=== PATIENT | female | born 1990 | race Caucasian/White ===

== ENCOUNTER 2022-05-19 08:35 | Outpatient (CLI) | payer MEDICAID, SELFPAY ==
--- NOTE | 2022-05-19 08:50 | US_ITS ---
WS: [id number] ULTRASOUND LEFT BREAST HISTORY: N64.4 - Mastodynia COMPARISON: None available. TECHNIQUE: 2-D and Doppler. Ultrasound is directed all 4 quadrants and area of pain. There is a vague hypoechoic area in the LEFT breast at 9:00, 2 cm from the nipple measuring 8 x 5 x 10 mm. With history of recent breast-feeding and pain this may be a focal area of mastitis. No shadowing or increased vascularity. This is very lopez perficial. The remaining breast is negative. US/US breast LT complete [id number] IMPRESSION: BI-RADS: 3-Probably Benign FOLLOW-UP: 6 Month Follow-up Subtle area of decreased echogenicity LEFT breast at 2:00, 4 cm from the nipple . May be a focal area of mastitis. There is no increased vascularity. This is v benny likely benign. Recommend 6 month follow-up to ensure resolution.
== END 2022-05-19 08:36 | disposition home or self-care (01) ==
PROVIDERS: PCP Nurse Practitioner Family; Visit Provider Nurse Practitioner Family
DX: N64.4 Mastodynia (principal)
CPT/HCPCS: 76641

== ENCOUNTER 2022-07-30 10:39 | Outpatient (CLI) | payer MEDICAID, SELFPAY ==
--- NOTE | 2022-07-30 10:50 | MM_ITS ---
WS: [id number] DIAGNOSTIC BILATERAL DIGITAL BREAST TOMOSYNTHESIS MAMMOGRAPHY WITH CAD LEFT breast ultrasound, limited HISTORY: LT BREAST LUMP COMPARISON: LEFT breast ultrasound 05/19/2022 TECHNIQUE: Bilateral craniocaudad, mediolateral oblique, and mediolateral views are submitted with to mosynthesis and SM. LEFT CC and MLO spot compression views. Computer aided detection utilized. Breast composition: The breasts are extremely dense, which lowers the sensitivity of mammography. Mary y dense breast tissue. Palpable markers are placed along the superior LEFT breast. No underlying mass or distortion identified. There is no skin thickening or nipple retraction. RIGHT breast is also neg ative. LEFT breast ultrasound, limited. Dense fibroglandular tissue at 2:00, 9:00 and 11:00 as directed by the patient. There are no suspicio us masses or areas of shadowing. The previously described asymmetries at 2:00 and 9:00 are not as pro minent today. No shadowing or skin thickening. MM/[place] [id number] IMPRESSION: BI-RADS: 2-Benign FOLLOW UP: Age 40 No imaging abnormality in the LEFT breast in the area of clinical concern. No a dditional imaging recommended.
== END 2022-07-30 10:40 | disposition home or self-care (01) ==
PROVIDERS: PCP Nurse Practitioner Family; Visit Provider Nurse Practitioner Family
DX: N63.20 Unspecified lump in the left breast, unspecified quadrant (principal)
CPT/HCPCS: 76642; 77062; G0279

== ENCOUNTER → 2022-11-10 10:34 | Outpatient (BNVA) | payer MEDICAID, SELFPAY | PROVIDERS: PCP Nurse Practitioner Family; Visit Provider Nurse Practitioner Family | DX: E03.9 Hypothyroidism, unspecified (principal) | CPT/HCPCS: 84439; 84443; 84481 ==

== ENCOUNTER → 2023-02-01 12:05 | Outpatient (BNVA) | payer MEDICAID, SELFPAY | PROVIDERS: PCP Nurse Practitioner Family; Visit Provider Emergency Medicine | DX: M79.671 Pain in right foot (principal); M79.89 Other specified soft tissue disorders | CPT/HCPCS: 73630 ==

== ENCOUNTER 2024-03-13 10:04 | Oncology outpatient (recurring) (ONCR) | payer MEDICAID, SELFPAY ==
[2024-03-13] MEDS: rho(d) immune globulin 1,500 unit Syringe 1500 UNIT IM (10:13)
== END 2024-03-20 23:59 | disposition home or self-care (01) ==
LOC: ONCMED 10:05
PROVIDERS: PCP Nurse Practitioner Family; Visit Provider Family Medicine
DX: Z79.899 Other long term (current) drug therapy (principal); Z67.41 Type O blood, Rh negative
CPT/HCPCS: 96372; J2790

== ENCOUNTER 2024-04-07 21:55 | Outpatient (CLI) | payer MEDICAID, SELFPAY ==
[2024-04-07 21:55] VITALS: BMI 40.4
[2024-04-07 22:14] VITALS: BP 113/59; PULSE 78
[2024-04-07 22:18] VITALS: BP 114/58; PULSE 83
[2024-04-07 22:34] VITALS: BP 115/60; PULSE 77
[2024-04-07 22:42] LABS: Nitrazine Paper, PH Inconclusive
[2024-04-07 22:48] LABS: Actim Prom Negative
[2024-04-07 23:08] VITALS: BP 115/60; PULSE 77
== END 2024-04-07 23:08 | disposition home or self-care (01) ==
LOC: OPOB 21:56 → OBGYN 21:59
PROVIDERS: PCP Nurse Practitioner Family; Visit Provider Family Medicine
DX: O26.899 Other specified pregnancy related conditions, unspecified trimester (principal); Z3A.00 Weeks of gestation of pregnancy not specified; R10.9 Unspecified abdominal pain; N89.8 Other specified noninflammatory disorders of vagina
CPT/HCPCS: 59025; 83986; 84112; 99211

== ENCOUNTER 2024-04-27 05:06 | Inpatient (IN) | payer MEDICAID, SELFPAY ==
--- NOTE | 2024-04-20 08:13 | P.ANESASSM_ITS ---
Pre-Anesthetic Assessment Height/Weight: Height 5 ft 3 in Preop Diagnosis: planned C section Operation Date: 04/27/24 07:20 Proposed Procedures p Section 49663, Z34.83, 69051,(Not Applicable) - Blaire Allan MD Was Beta Matilde taken within 24 hours: N/A Was Clonidine taken within 24 hours: N/A Social No alcohol and No tobacco Exam alert, oriented x 3, clear to auscultation bilaterally and regular rate & rhythm Airway Submandibular: within normal limits Cervical ROM: within normal limits Mallampati: Class II Dentition: full Anesthetic Plan ASA status: 2 Anesthesia: Regional (specify below) Other: G4, P3 here for consult for planned next No issues during or with prior anesthetic. Patient only takes vitamin Denies any pulmonary cardiac issues METs greater than 4 Will obtain labs day of prior to spinal anesthetic Medications/Allergies Home Medications Medication Instructions Recorded Confirmed Last Taken Type 1 tab PO DAILY 04/07/24 04/07/24 04/07/24 History Allergies Allergy/AdvReac Type Severity Reaction Status Date / Time No Known Allergies Allergy Verified 04/07/24 22:21 [facility], [facility] Anesthesia Surgical History Hx of section Family History Father Diabetes Family/Other Cancer Dementia Diabetes Grandfather Cancer Diabetes Mother Diabetes Grandmother Diabetes Sister Diabetes Denies family history of Colon cancer Ovarian cancer Heart disease Breast cancer Hypertension Uterine cancer Thyroid disease Stroke Data Anesthesia Cardiac Studies: No Data to Display
[2024-04-27] VITALS (31 sets, daily range): BP systolic 89–114; BP diastolic 41–64; PULSE 56–96; RESP 15–16; TEMP 36.4–36.7; O2SAT 95–97; BMI 40.1
[2024-04-27 05:30] LABS: Basophils % 0.4 %; Eosinophils # 0.1 10^3/uL (0.0-0.8); Hematocrit 35.1 % (36-47); Lymphocytes # 2.4 10^3/uL (0.8-4.8); Lymphocytes % 24.4 %; Mean Corpuscular HGB Conc 33.3 g/dL (30-55); Mean Corpuscular Hemoglobin 28.3 pg (27-33); Mean Corpuscular Volume 84.8 fl (85-98); Mean Platelet Volume 11.7 fL (7.4-10.4); Monocytes # 0.7 10^3/uL (0.2-0.9); Monocytes % 7.2 %; Neutrophils # 6.58 10^3/uL (1.8-7.7); Neutrophils % 66.3 %; Nucleated Red Blood Cells % 0 %; Platelet Count 148 10^3/cmm (157-399); Red Blood Count 4.14 10^6/uL (3.85-5.65); Red Cell Distribution Width 12.8 % (12.1-15.1); White Blood Count 9.92 10^3/uL (3.29-11.43)
[2024-04-27] MEDS: lactated ringers 1,000 ML 999 ML IV (06:00)
[2024-04-27 06:35] LABS: Slide Review Slide Review Perform
[2024-04-27] MEDS: famotidine 20 mg/2 mL INJ IVP (06:54)
[2024-04-27] MEDS: metoclopramide 5 mg/mL SDV 2 mL 10 MG IVP (06:55)
[2024-04-27] MEDS: citric acid-sodium citrate 30 mL UDC PO (06:55)
--- NOTE | 2024-04-27 06:55 | P.ANESUD_ITS ---
Pre-Anesthetic Update Pre-Anesthetic Assessment: Date of Surgery/Procedure: 04/27/24 Preop Kaitlin gnosis: planned C section Proposed Procedure: Operation Date: 04/27/24 07:20 Proposed Procedures p Section 57895, Z34.83, 30605,(Not Applicable) - Blaire Allan MD Any changes to Pre-Anesthetic Assessment?: No Last Intake: Intake Last Liquid Date 04/26/24 Last Liquid Time 22:00 Last Solid Date 04/26/24 Last Solid Time 19:00 Labs Last 48hrs: Short CBC 04/27/24 Range/Units 05:15 WBC 9.92 (3.29-11.43) 10^ 3/uL Hgb 11.70 (11.27-16.99) g/ dL Hct 35.1 L (36-47) % MCV 84.8 L (85-98) fl Plt Count 148 L (157-399) 10^3/c mm Neut % (Auto) 66.3 % Neut # (Auto) 6.58 (1.8-7.7) 10^3/u L Blood Bank 04/27/24 05:15 Blood Type O Negative Rho(D) Type Rh negative Antibody Screen Positive Vitals: Temperature 98.0 F 04/27/24 06:00 Temperature Source Oral 04/27/24 06:00 Pulse Rate 88 04/27/24 05:51 Respiratory Rate 16 04/27/24 06:00 Respiratory Effort Spontaneous, Non- Labored 04/27/24 05:08 Respiratory Depth Normal 04/27/24 05:08 Respiratory Patter n Normal 04/27/24 05:08 Blood Pressure 110/63 04/27/24 05:51 Oxygen Delivery Me thod Room Air 04/27/24 06:00 Exam: Pre-Anes Outpt Exam: alert, oriented x 3, clear to auscultation bilaterally and regular rate & rhythm Cardiac Studies: No Data to Display
--- NOTE | 2024-04-27 06:58 | P.HP_ITS ---
Providers/Chief Complaint 2 Admitting Physician: Blaire Allan MD Primary Care Provider: RADHA Preciado History of Present Illness Richar Mckenna is a 33 year old female G4, P3 at 39 weeks gestation who is here for a repeat section with bilateral tubal ligation. Review of Systems 2 Narrative: She is feeling well this morning, she denies any fever or chills, abdominal pain, contractions, bleeding or loss of fluid. Medications/Allergies Home Medications Medication Instructions Recorded Confirmed Last Taken Type 1 tab PO DAILY 04/07/24 04/07/24 04/07/24 History Allergies Allergy/AdvReac Type Severity Reaction Status Date / Time No Known Allergies Allergy Verified 04/07/24 22:21 PFSH Acute 2 PFSH: Surgical History (Updated 04/27/24 @ 07:01 by Blaire Allan MD) History of appendectomy Hx of section Family History Father Diabetes Family/Other Cancer Dementia Diabetes Grandfather Cancer Diabetes Mother Diabetes Grandmother Diabetes Sister Diabetes Denies family history of Colon cancer Ovarian cancer Heart disease Breast cancer Hypertension Uterine cancer Thyroid disease Stroke Female Reproductive History: Date of last menstrual period: 06/27/23 G ravida: 4 Para: 3 Other female reproductive history: section x 3 Vitals/I&O/Wt Last Vital Signs Temp 98.0 F 04/27/24 06:00 Pulse 88 04/27/24 05:51 Resp 16 04/27/24 06:00 BP 110/63 04/27/24 05:51 O2 Del Method Room Air 04/27/24 06:00 Weight last 48 hrs Weight 102.965 kg Physical Exam 2 Narrative: Alert and oriented, sitting up in bed, heart regular rate and rhythm, lungs clear to auscultation bilaterally, abdomen is gravid and nontender, extremities have no calf tenderness Data 04/27/24 05:15 A&P Assessment and plan (1) with 39 completed weeks gestation: Repeat section with bilateral tubal ligation Attestations 2 Medical Necessity Statement*: surgery and postoperative care Coding Level of Care Code Acute Code for Chg Fwd Diagnoses with 39 completed weeks gestation Z3A.39
--- NOTE | 2024-04-27 08:31 | PM.OP ---
Operative Report Date of procedure: April 27, 2024 Pre-op diagnosis: IUP at 39 weeks gestation Repeat section Desired permanent surgical sterilization Post-op diagnosis: Same Procedure done: Repeat low-transverse section Via Pfannenstiel skin incision Bilateral tubal ligation Specimens removed/disposition: Vertex female weight 3480 g, Apgars 9 and 10 Surgeon: Blaire Allan MD Estimated blood loss (mL): 350 IV fluids (mL): 900 Urine output (mL): 75 Complications: None Procedure: After informed consent the patient was taken to the OR where spinal anesthesia was administered. She was prepped and draped in normal sterile fashion in dorsal supine position with a left lateral tilt. A Pfannenstiel skin incision was made and her previous scar was removed. The incision was then extended down to the fascia sharply. The fascial incision was extended laterally using the Mayos. There was a significant amount of fascial scarring and a paucity of rectus muscles. The fascia was then grasped with Sony clamps and the underlying rectus muscles were dissected off taking care to avoid injury to the underlying tissue. The midline was heavily scarred and was entered sharply using the scalpel. The incision was then extended by manual stretching. The bladder blade was inserted. The vesicouterine peritoneum was scarred but was entered sharply using the Metzenbaums. The bladder flap was created digitally and the bladder blade was reinserted. Uterine incision was made in a transverse fashion in the lower uterine segment. Amniotic rupture membranes was performed using an Allis clamp and there was clear fluid. The infant was delivered atraumatically with bulb suction of the mouth and naris at delivery. The cord was clamped and cut. The was handed to the waiting pediatric nurse. Cord blood was obtained. The placenta was delivered using fundal pressure. The uterus was then exteriorized from the abdomen and a dry sponge was used to clear the uterus of clots and debris. The uterine incision was then repaired using 0 chromic in a running locked fashion. A second layer of the same suture was used in an imbricating manner. Hemostasis was obtained. The left fallopian tube was then grasped with a Cesilia and a distal portion of the tube was ligated and excised. Tubal ostia were visualized. Segment of the tube was sent to pathology. Cut portions of the tube were coagulated using the Bovie. The right fallopian tube was then grasped with a Cesilia and a midportion of the tube was ligated and excised. Tubal ostia were visualized. Segment of the tube was sent to pathology. The cut portions of the tube were coagulated using the Bovie. The uterus was then gently returned to the abdomen. Irrigation was used to clear the gutters of clots and debris and the uterine incision was reinspected for hemostasis. The fascia was then reapproximated using 0 Vicryl in a running fashion. The subcutaneous tissue was then irrigated and any small bleeders were coagulated using the Bovie. The subcutaneous tissue was then reapproximated using 4-0 Vicryl in a running fashion. The skin was then reapproximated using 4-0 Vicryl in a running fashion on a Corby needle. Steri-Strips and a pressure bandage were applied and patient went to recovery in good condition. Sponge instrument and needle counts were correct.
[2024-04-27] MEDS: ePHEDrine 50 mg/mL Inj 10 MG IVP (08:58)
[2024-04-27] MEDS: dextrose 5%-lactated ringers 1,000 ML 125 ML IV (09:15)
--- NOTE | 2024-04-27 09:15 | ANE.PACU2 ---
Inpatient post-anesthesia follow up: Airway intact: Yes Vital signs: Temperature 97.6 F Pulse Rate 65 Respiratory Rate 16 Blood Pressure 97/56 Pulse Oximetry 97 Oxygen Delivery Me thod Room Air Oxygen Flow Rate Fraction of Inspir ed Oxygen Hydration adequate: Yes Nausea and vomiting: No Pain level: 1 Mental status: Baseline
[2024-04-27] MEDS: ondansetron 2 mg/ML SDV 2 mL 4 MG IVP ×2 (11:35→16:39)
[2024-04-27] MEDS: sodium chloride 0.9% 500 ML 999 ML IV (14:03)
[2024-04-27] MEDS: ketorolac 30 mg/mL INJ IVP ×2 (14:04→20:41)
[2024-04-27 20:34] LABS: Hematocrit 31.6 % (36-47); Mean Corpuscular HGB Conc 32.6 g/dL (30-55); Mean Corpuscular Hemoglobin 28.5 pg (27-33); Mean Corpuscular Volume 87.3 fl (85-98); Mean Platelet Volume 10.7 fL (7.4-10.4); Platelet Count 145 10^3/cmm (157-399); Red Blood Count 3.62 10^6/uL (3.85-5.65); Red Cell Distribution Width 12.8 % (12.1-15.1); White Blood Count 13.38 10^3/uL (3.29-11.43)
[2024-04-27] MEDS: docusate sodium 100 mg Capsule PO (20:41)
[2024-04-28] VITALS (7 sets, daily range): BP systolic 96–123; BP diastolic 53–71; PULSE 72–88; RESP 16; TEMP 36.7–36.9
[2024-04-28] MEDS: ketorolac 30 mg/mL INJ IVP (04:20)
[2024-04-28] MEDS: PRENATAL VIT NO.130/IRON/FOLIC 1 EACH TABLET PO (09:17)
[2024-04-28] MEDS: ferrous sulfate EC 325 mg Tablet PO (09:17)
[2024-04-28] MEDS: docusate sodium 100 mg Capsule PO (09:17)
[2024-04-28] MEDS: ibuprofen 800 mg tablet PO ×3 (09:50→20:26)
--- NOTE | 2024-04-28 11:22 | P.PN_ITS ---
Subjective 2 Subjective: Postop day #1 repeat section with bilateral tubal ligation. The patient is doing well. She says her pain is not too bad. She is ambulating and tolerating a regular diet, she has light vaginal bleeding. Vitals/I&O/Wt Last Vital Signs Temp 98.0 F 04/28/24 10:35 Pulse 76 04/28/24 10:28 Resp 16 04/28/24 10:35 BP 110/60 04/28/24 10:28 Pulse Ox 97 04/27/24 09:10 O2 Del Method Room Air 04/27/24 09:10 04/27/24 04/28/24 04/28/24 22:59 06:59 14:59 Intake Total Output Total 1300 / 2195 Balance -1300 / -1295 1 / 1294 Weight last 48 hrs Weight 102.965 kg Physical Exam 2 Narrative: Alert and oriented sitting up in bed holding the infant, heart regular rate and rhythm, lungs clear to auscultation bilaterally, abdomen is soft with appropriate postoperative tenderness, incision is clean dry and intact with Steri-Strips in place. Extremities have 1+ edema but no calf tenderness Urinary Catheter Management: Ag: Cath Placed During This Visit: yes, but has since been removed by the nurse Reason for Continuing Indwelling Catheter: Decision to DC Catheter Urinary Catheter Date of Insertion: 04/27/24 Urinary Catheter Time of Insertion: 07:20 Date Urinary Catheter Removed: 04/27/24 Time Urinary Catheter Discontinued: 20:40 Data 04/27/24 20:30 A&P Assessment and plan (1) Status post repeat low transverse section: Postop day 1 repeat section with bilateral tubal ligation. Doing well. Continue routine postoperative and care. Attestations 2 Medical Necessity Statement*: Routine postoperative and care Coding Level of Care Code Acute Code for Chg Fwd Diagnoses Status post repeat low transverse section Z98.891
[2024-04-28] MEDS: acetaminophen 325 mg Tablet 650 MG PO (12:48)
[2024-04-28] MEDS: HYDROcodone-acetaminophen 5-325 mg Tablet PO ×2 (16:43→22:29)
[2024-04-29] MEDS: HYDROcodone-acetaminophen 5-325 mg Tablet PO ×3 (03:09→12:04)
[2024-04-29 05:30] VITALS: BP 107/56; PULSE 73
[2024-04-29] MEDS: docusate sodium 100 mg Capsule PO (07:35)
[2024-04-29] MEDS: ibuprofen 800 mg tablet PO (07:35)
[2024-04-29] MEDS: PRENATAL VIT NO.130/IRON/FOLIC 1 EACH TABLET PO (07:35)
--- NOTE | 2024-04-29 08:10 | P.DS_ITS ---
Discharge Providers Date of Admission: 04/27/24 05:06 Date of Discharge: April 29, 2024 Attending Provider at Admission: Blaire Allan MD Attending Provider at Discharge: Blaire Allan MD Primary Care Provider: RADHA Preciado Diagnoses at Discharge Discharge Diagnosis (1) Status post repeat low transverse section: Status: Acute Reason for Visit Reason for Visit: UTD 04/27 Hospital Course Hospital Course This is a 33-year-old G4 now P4 who had a repeat section with bilateral tubal ligation. She has done well postoperatively. She is ambulating, tolerating a regular diet, has pain control with oral medications and is comfortable with discharge home. Physical Exam Narrative: Alert and oriented, resting in bed, heart regular rate and rhythm, lungs clear to auscultation bilaterally, abdomen is soft with appropriate postoperative tenderness, incision is clean dry and intact with Steri-Strips in place, extr emities have 1+ edema but no calf tenderness. Urinary Catheter Management: Ag: Cath Placed During This Visit: yes, but has since been removed by the nurse Reason for Continuing Indwelling Catheter: Decision to DC Catheter Urinary Catheter Date of Insertion: 04/27/24 Urinary Catheter Time of Insertion: 07:20 Date Urinary Catheter Removed: 04/27/24 Time Urinary Catheter Discontinued: 20:40 Discharge Data Studies Completed and Pending Pending at discharge Category Date Time Status Pathology: Surgical [PTH] Routine Pth 04/27/24 10:37 Received Laboratory Results WBC 13.38 10^3/uL (3.29-11.43) H 04/27/24 20:30 RBC 3.62 10^6/uL (3.85-5.65) L 04/27/24 20:30 Hgb 10.30 g/dL (11.27-16.99) L 04/27/24 20:30 Hct 31.6 % (36-47) L 04/27/24 20:30 MCV 87.3 fl (85-98) 04/27/24 20:30 MCH 28.5 pg (27-33) 04/27/24 20:30 MCHC 32.6 g/dL (30-55) 04/27/24 20:30 RDW 12.8 % (12.1-15.1) 04/27/24 20:30 Plt Count 145 10^3/cmm (157-399) L 04/27/24 20:30 MPV 10.7 fL (7.4-10.4) H 04/27/24 20:30 Neut % (Auto) 66.3 % 04/27/24 05:15 Lymph % (Auto) 24.4 % 04/27/24 05:15 [place] % (Auto) 7.2 % 04/27/24 05:15 Eos % (Auto) 1.0 % 04/27/24 05:15 Baso % (Auto) 0.4 % 04/27/24 05:15 Neut # (Auto) 6.58 10^3/uL (1.8-7.7) 04/27/24 05:15 Lymph # (Auto) 2.4 10^3/uL (0.8-4.8) 04/27/24 05:15 [place] # (Auto) 0.7 10^3/uL (0.2-0.9) 04/27/24 05:15 Eos # (Auto) 0.1 10^3/uL (0.0-0.8) 04/27/24 05:15 Baso # (Auto) 0.0 10^3/uL (0.0-0.1) 04/27/24 05:15 Nucleated RBC % (auto) 0 % 04/27/24 05:15 Nucleated RBCs # 0.0 /100WBC 04/27/24 05:15 Blood Type O Negative 04/27/24 05:15 Rho(D) Type Rh negative 04/27/24 05:15 Antibody Screen Positive 04/27/24 05:15 Antibody Identification Anti-D 04/27/24 05:15 Screen Negative (Negative) 04/27/24 20:34 Vitals Last Vital Signs Temp 98.4 F 04/28/24 21:00 Pulse 73 04/29/24 05:30 Resp 16 04/28/24 10:35 BP 107/56 04/29/24 05:30 Pulse Ox 97 04/27/24 09:10 O2 Del Method Room Air 04/27/24 09:10 Discharge Plan Discharge Patient Disposition: Home Condition: Stable Prescriptions: New ibuprofen 800 mg Tablet 800 mg PO TID PRN (Reason: Abdominal Discomfort) Qty: 40 0RF hydrocodone-acetaminophen 5-325 mg Tablet 1 - 2 tab PO Q4H PRN (Reason: Moderate To Severe Pain) Qty: 15 0RF docusate sodium 100 mg Capsule 100 mg PO BID Qty: 60 0RF Continued 1 tab PO DAILY Discharge Orders: Discharge Order (Routine); Ordered 04/29/24 Ordered By: Blaire Allan Referrals: Blaire Allan MD [Physician] - 1 week Discharge Diet: Usual diet Discharge Activity: Limit activity as instructed Patient Instructions: Opioid Safety Discharge Attestations Time Spent in Discharge Care*: less than 30 min Quality Metrics Clinical Quality Measures [ No reported AMI, CVA or VTE this stay] Coding Level of Care Code Acute Code for Chg Fwd Diagnoses Status post repeat low transverse section Z98.891
--- NOTE | 2024-04-29 12:27 | PC.NURSE ---
Patient offered rubella vaccine, patient states she has been poked enough and does not want it at this time.
[2024-04-29 12:32] VITALS: BP 124/75; PULSE 85; RESP 18; TEMP 36.1; O2SAT 99
== END 2024-04-29 12:31 | disposition home or self-care (01) | DRG 785 ==
PROVIDERS: Admitting Provider Family Medicine; PCP Nurse Practitioner Family; Visit Provider Family Medicine
PROC: 10D00Z1 Extraction of Products of Conception, Low, Open Approach (ICD-10-PCS; CPT 59514; principal; 2024-04-27 07:00)
DX: O34.211 Maternal care for low transverse scar from previous cesarean delivery (principal); Z3A.39 39 weeks gestation of pregnancy; Z37.0 Single live birth; Z30.2 Encounter for sterilization; N85.8 Other specified noninflammatory disorders of uterus
CPT/HCPCS: 36415; 36430; 51702; 59025; 59409; 80503; 85025; 85027; 85460; 86850; 86870; 86900; 88302; 90384; 96374; 96376; J1885; J2274; J2371; J2405; J2765; J3010; J3490; J7030; J7040; J7120; J7121

== ENCOUNTER → 2024-05-31 08:46 | Outpatient (BNVA) | payer MEDICAID, SELFPAY | PROVIDERS: PCP Nurse Practitioner Family; Visit Provider Nurse Practitioner Family | DX: N39.0 Urinary tract infection, site not specified (principal) | CPT/HCPCS: 81000 ==

== ENCOUNTER → 2024-06-02 15:16 | Outpatient (BNVA) | payer MEDICAID, SELFPAY | PROVIDERS: PCP Nurse Practitioner Family; Visit Provider Nurse Practitioner Family | DX: N39.0 Urinary tract infection, site not specified (principal) | CPT/HCPCS: 81000 ==

== ENCOUNTER 2024-06-06 15:45 | Oncology outpatient (recurring) (ONCR) | payer MEDICAID, SELFPAY ==
--- NOTE | 2024-06-06 15:52 | USR_ITS ---
PROCEDURE INFORMATION: Exam: US Abdomen; Limited Exam date and time: 06/06/2024 4:12 PM Age: 33 years old Clinical indication: Condition or disease; Other: Urinary tract infection TECHNIQUE: Imaging protocol: Real time ultrasound of the abdomen with image documentation. Limited exam focused on the region of clinical interest. COMPARISON: US OB >= 14 weeks fetus [id number] 12/20/2023 8:10 AM FINDINGS: Study was done to evaluate the bladder. No bladder mass is seen. Bilateral ureteral jets were visualized. Prevoid volume 101 mL. Postvoid residual 14 mL. Visualized uterus is unremarkable. US/US bladder [id number] IMPRESSION: Unremarkable bladder with a tiny postvoid residual.
== END 2024-06-20 23:59 | disposition home or self-care (01) ==
LOC: RAD 06-07 → ONCMED 06-07 07:29
PROVIDERS: PCP Nurse Practitioner Family; Visit Provider Family Medicine
DX: N39.0 Urinary tract infection, site not specified (principal)
CPT/HCPCS: 76857

== ENCOUNTER → 2024-06-08 09:02 | Outpatient (BNVA) | payer MEDICAID, SELFPAY | PROVIDERS: PCP Nurse Practitioner Family; Visit Provider Nurse Practitioner Family | DX: N39.0 Urinary tract infection, site not specified (principal) | CPT/HCPCS: 80053; 81000; 85025; 87086 ==

== ENCOUNTER → 2024-10-03 11:54 | Outpatient (BNVA) | payer MEDICAID, SELFPAY | PROVIDERS: PCP Nurse Practitioner Family; Visit Provider Nurse Practitioner Family | DX: Z12.83 Encounter for screening for malignant neoplasm of skin (principal); E03.9 Hypothyroidism, unspecified; I10 Essential (primary) hypertension | CPT/HCPCS: 80053; 80061; 84439; 84443 ==

== ENCOUNTER → 2024-10-10 13:26 | Outpatient (BNVA) | payer MEDICAID, SELFPAY | PROVIDERS: PCP Nurse Practitioner Family; Visit Provider Nurse Practitioner Family | DX: D22.9 Melanocytic nevi, unspecified (principal) | CPT/HCPCS: 88305 ==

== ENCOUNTER 2025-05-07 11:08 | Outpatient (CLI) | payer MEDICAID, SELFPAY ==
--- NOTE | 2025-05-07 11:15 | US_ITS ---
WS: [id number] ULTRASOUND LEFT BREAST, limited HISTORY: Palpable area LEFT breast. COMPARISON: None available. TECHNIQUE: 2-D and Doppler. Ultrasound directed to the palpable area which is at 3:00, 4 cm from the nipple. There is very dense fibroglandular tissue. There is no shadowing and no increased vascularity. There is no distortion or skin thickening. During real- time imaging this area of thickening was mobile and moves with pressure. US/US breast LT limited* [id number] IMPRESSION: BI-RADS: 2- Benign FOLLOW-UP: See Report 1. There is no mass associated with the palpable abnormality in the LEFT breas t at 3:00. This appears to be very dense fibroglandular breast tissue. No addit ional imaging necessary at this time.
== END 2025-05-07 11:09 | disposition home or self-care (01) ==
LOC: RAD 11:08
PROVIDERS: PCP Nurse Practitioner Family; Visit Provider Nurse Practitioner Family
DX: N63.20 Unspecified lump in the left breast, unspecified quadrant (principal); R92.322 Mammographic fibroglandular density, left breast; R92.8 Other abnormal and inconclusive findings on diagnostic imaging of breast
CPT/HCPCS: 76642